=== PATIENT | female | born 1990 | race Caucasian/White ===

== ENCOUNTER 2024-04-06 09:47 | Day surgery (SDC) | payer OTHER ==
[2024-04-06] VITALS (11 sets, daily range): BP systolic 91–111; BP diastolic 59–73; PULSE 54–72; TEMP 97.6
[~2024-04-06] VITALS: Ht 162.6 cm; Wt 70.8 kg
[2024-04-06] MEDS ORDERED: 1/2 NS 1,000 ML IV SCH (10:15)
[2024-04-06 10:33] LABS: HEMOGLOBIN 12.3 g/dl (12.5-16.0); MEAN CELL VOLUME 83 fl (80.0-100.0); MEAN CORPUSCULAR HEMOGLOBIN 28 pg (27-31); MEAN CORPUSCULAR HGB CONC 34 g/dl (33.0-37.0); MEAN PLATELET VOLUME 9.6 fl (7.4-10.4); PLATELET COUNT 277 K/mm3 (130-400)
[2024-04-06 10:34] LABS: HEMATOCRIT 36.6 % (37.0-47.0)
[2024-04-06 10:40] LABS: INR 1.1 (0.8-3.0); PROTHROMBIN TIME 11.6 SECONDS (9.7-12.8)
[2024-04-06 10:42] LABS: PARTIAL THROMBOPLASTIN TIME 31.5 SECONDS (26.0-37.0)
[2024-04-06] MEDS ORDERED: UBRELVY100 MG PO (10:42)
[2024-04-06] MEDS ORDERED: MINOXIDIL 2.5 PO (10:44)
[2024-04-06 10:50] LABS: CALCIUM 9.3 mg/dL (8.4-10.2); CREATININE, serum 0.71 mg/dL (0.57-1.11); POTASSIUM 4.2 mEq/L (3.5-4.5)
[2024-04-06] MEDS ORDERED: Nitroglycerin 2% Topical Oint 1 GM UD TD SCH (11:16)
--- NOTE | 2024-04-06 11:39 | NUR ---
See Merge Report for procedural sedation/notes
[2024-04-06] MEDS ORDERED: niCARdipine (Cath Lab) 100 MCG/ML 10 ML VIAL IA SCH (11:44)
[2024-04-06] MEDS ORDERED: Heparin 1,000 UNITS/ML 10 ML Multi-Dose VIAL IV SCH (11:47)
[2024-04-06] MEDS ORDERED: Midazolam 2 MG/2 ML VIAL IV SCH (11:52)
[2024-04-06] MEDS ORDERED: fentaNYL 50 MCG/ML 2 ML VIAL IV SCH (11:53)
[2024-04-06] MEDS ORDERED: Iohexol 350 - 100 ML VIAL INCOR ONE (11:56)
[2024-04-06] MEDS ORDERED: FISH OIL 1000MG1 CAP PO (12:11)
[2024-04-06] MEDS ORDERED: Acetaminophen 325 MG TAB PO PRN (12:15)
--- NOTE | 2024-04-06 15:46 | NUR ---
Pt ambulated to [facility] with a steady gait, accompanied by . The pt was scheduled for a [facility]. EKG done. IV started, labs drawn. Meds and HX reviewed with the pt. Consent for the procedure signed. Post procedure the pt came back to [facility]. The right radial site was assessed, clean and dry, The pt was offered something to eat and drink. They did not want anything at the time. The pt reported their arm hurting, notified. Tylenol was ordered and given to the pt. After giving the pt tylenol their pain was reassessed later. The pts pain was still present but was more of a dull pain. Once the pts bedrest time was done they got up to use the restroom with a steady gait. After 2 hours of recovery air was taken out of the radial band. 2 mls about every 15 mins. During this process the radial site remained clean and dry. Once all the air was released the site was cleaned and a band-aid was applied. The deflated band was reapplied as a reminder to limit extremity use. The IV was dc'd and wrapped with coban. Discharge education and information discussed with the pt. No questions at the time. The pt will exit the unit by wheelchair to husbands car.
== END 2024-04-06 16:00 | disposition home or self-care (01) ==
LOC: COL.CAR 09:47
PROVIDERS: Internal Medicine Cardiovascular Disease
DX: I20.9 Angina pectoris, unspecified (principal); R94.39 Abnormal result of other cardiovascular function study
CPT/HCPCS: J1644; J2250; J2404; J3010; Q9967